=== PATIENT | male | born 1975 | race Caucasian/White ===

== ENCOUNTER 2018-03-22 20:08 | Emergency (ER) | payer OTHER ==
[2018-03-22] MEDS ORDERED: HYDROmorphone 1 MG/ML Syringe IM ONE (20:44)
--- NOTE | 2018-03-22 20:44 | EDM.PDOC ---
ED HPI GENERAL MEDICAL PROBLEM - General Chief Complaint: Lower Extremity Injury/Pain Stated Complaint: STEPPED ON SOMETHING IN THE [place] Time Seen by Provider: 03/22/18 20:30 Source of Information: Reports: Patient, Family History Limitations: Reports: No Limitations - History of Present Illness INITIAL COMMENTS - FREE TEXT/NARRATIVE: Everton presents today for complaints of stepping on something in [place] at 1900. He states he did not find anything stuck in his great toe, but he is having sharp stabbing pain since he stepped on something. He reports his tetanus is up to date. He states he took ibuprofen at 1930, has had no relief of pain. Left 1-Hallux Pain Score (Numeric/FACES): 10 - Related Data Allergies Allergy/AdvReac Type Severity Reaction Status Date / Time No Known Allergies Allergy Verified 03/22/18 20:55 Home Meds: Home Meds NK [No Known Home Meds] 03/22/18 [History] Review of Systems - Review of Systems Review Of Systems: See Below Constitutional: Denies: Fever, Weakness Eyes: Reports: No Symptoms Ears: Reports: No Symptoms Nose: Reports: No Symptoms Mouth/Throat: Reports: No Symptoms Respiratory: Reports: No Symptoms Cardiovascular: Reports: No Symptoms GI/Abdominal: Reports: No Symptoms Musculoskeletal: Reports: Other (Left great toe pain ) Skin: Reports: Other (Puncture wound left great toe) Neurological: Reports: No Symptoms Psychiatric: Reports: No Symptoms ED EXAM, GENERAL - Physical Exam Exam: See Below Free Text/Narrative:: Everton presents to the emergency room for complaint of pain to left great toe from puncture wound while in the [place] tonight. Use of ibuprofen has not helped his pain. Exam Limited By: No Limitations General Appearance: Alert, WD/WN, Mild Distress Eye Exam: Bilateral Eye: EOMI, Normal Inspection, PERRL Head: Atraumatic, Normocephalic Neck: Normal Inspection, Supple, Non-Tender, Full Range of Motion. No: Lymphadenopathy (R), Lymphadenopathy (L) Respiratory/Chest: No Respiratory Distress, Lungs Clear, Normal Breath Sounds, No Accessory Muscle Use, Chest Non-Tender Cardiovascular: Normal Peripheral Pulses, Regular Rate, Rhythm, No Edema, No Murmur, No Rub Peripheral Pulses: 2+: Radial (L), Radial (R), Dorsalis Pedis (L), Dorsalis Pedis (R) Back Exam: Normal Inspection, Full Range of Motion. No: CVA Tenderness (R), CVA Tenderness (L) Extremities: Normal Range of Motion, No Pedal Edema, Normal Capillary Refill, Other (Tenderness to left great toe, small puncture wound noted to fat pat of left great toe, no bleeding. No obvious foreign body noted. ). No: Joint Swelling, Increased Warmth, Redness Neurological: Alert, Oriented, CN II-XII Intact, Normal Cognition, Normal Gait, Normal Reflexes, No Motor/Sensory Deficits Psychiatric: Anxious Skin Exam: Warm, Dry, Normal Color, No Rash, Other (small puncture wound to plantar surface left great toe). No: Ecchymosis, Erythema, Increased Warmth, Pallor Lymphatic: No Adenopathy ED TRAUMA EXTREMITY PROCEDURES - Laceration/Wound Repair Left Toe - Great Lac/Wound Length In cm: 0 (Puncture wound) Distal NVT: Neuro & Vascular Intact Anesthetic Type: Local Local Anesthesia - Lidocaine (Xylocaine): 1% Plain Local Anesthetic Volume: Other (left Great toe digit block) Skin Prep: Chlorhexidine (Hibiciens) Tetanus Status Addressed: Yes Complications: No Progress/Comments: Toe cleansed with soap and water, chloraprep to skin prior to digit block. Digit block completed without difficulty, patient tolerated well with complete pain relief. Puncture wound explored, no foreign body identified. Course - Vital Signs Last Recorded V/S: Last Vital Signs Temp 36.8 C 03/22/18 20:32 Pulse 106 H 03/22/18 20:32 Resp 18 03/22/18 20:32 BP 135/88 03/22/18 20:32 Pulse Ox 94 L 03/22/18 20:32 - Orders/Labs/Meds Orders: Active Orders 24 hr Category Date Time Status Foot 2V Lt [CR] Stat Exams 03/22/18 21:11 Taken Meds: Medications Discontinued Medications Generic Name Dose Route Start Last Admin Trade Name Carol PRN Reason Stop Dose Admin Hydromorphone HCl 1 mg 03/22/18 20:44 03/22/18 20:55 Dilaudid IM 03/22/18 20:45 1 mg ONETIME ONE Administration Lidocaine HCl 20 ml 03/22/18 21:32 03/22/18 21:37 Xylocaine 1% INJECT 03/22/18 21:33 20 ml ONETIME ONE Administration Lorazepam 1 mg 03/22/18 20:45 03/22/18 20:57 Ativan IM 03/22/18 20:46 1 mg ONETIME ONE Administration Departure - Departure Time of Disposition: 21:56 Disposition: Home, Self-Care 01 Condition: Good Clinical Impression: Puncture wound of great toe, left - Discharge Information *PRESCRIPTION DRUG MONITORING PROGRAM REVIEWED*: Yes *COPY OF PRESCRIPTION DRUG MONITORING REPORT IN PATIENT OTRI: No Instructions: Puncture Wound Referrals: PCP,None [Primary Care Provider] - Forms: ED Department Discharge Additional Instructions: You have been evaluated and treated for a puncture wound with significant pain to the left great toe. X-ray images negative for foreign body. Digital block completed with good pain relief, puncture wound explored, no foreign body found. You were given dilaudid and ativan IM while in the emergency room. It would be best for you to go back to your resort, elevate your foot above your heart, rest, ice the toe to decrease pain. You have been provided a prescription for cephalexin 1000mg by mouth twice per day for 10 days for signs of infection. Take ibuprofen and acetaminophen for pain as needed. Return for worsening, issues or concerns. - My Orders Last 24 Hours: My Active Orders 03/22/18 21:11 Foot 2V Lt [CR] Stat - Assessment/Plan Last 24 Hours: My Active Orders 03/22/18 21:11 Foot 2V Lt [CR] Stat Assessment:: Puncture wound left great toe Plan: Patient evaluated and treated for a puncture wound with significant pain to the left great toe. X-ray images negative for foreign body. Digital block completed with good pain relief, puncture wound explored, no foreign body found. Patient given dilaudid and ativan IM while in the emergency room. He was provided education on care of puncture wound, use of antibiotic and to elevate foot above heart, rest, ice the toe to decrease pain. He was provided a prescription for cephalexin 1000mg by mouth twice per day for 10 days for signs of infection. Take ibuprofen and acetaminophen for pain as needed. Return for worsening, issues or concerns.
[2018-03-22] MEDS ORDERED: LORazepam 2 MG/ML SDV IM ONE (20:45)
[2018-03-22] MEDS ORDERED: Lidocaine 1% 20 ML MDV INJECT ONE (21:32)
--- NOTE | 2018-03-25 14:35 | CR ---
Left foot Findings: There is normal alignment. There are no post traumatic findings. There is a 2 mm rounded soft tissue density along the plantar aspect of the foot between the first and second metatarsal heads. Impression: 1. Negative fracture. 2. Nonspecific soft tissue density between the first and second metatarsal heads. Correlate for possi ble foreign body.
== END 2018-03-22 22:13 | disposition home or self-care (01) ==
LOC: JP.ED 20:08
DX: S91.132A Puncture wound without foreign body of left great toe without damage to nail, initial encounter (principal); W45.8XXA Other foreign body or object entering through skin, initial encounter
CPT/HCPCS: 64450; 73620; 99284; J1170; J2060